=== PATIENT | male | born 1940 | race Caucasian/White ===

== ENCOUNTER 2018-09-30 13:08 | Inpatient (IN) | payer MEDICARE ==
[~2018-09-30] VITALS: Ht 188 cm; Wt 129.2 kg
[2018-09-30 14:15] LABS: Base Excess Venous 0.1 mmol/L; Bicarbonate Venous 24.4 mmol/L (24.0-30.0); PCO2 Venous 34.4 mmHg (38-42); PO2 Venous 36.1 mmHg (38-42); pH Blood Venous 7.45 (7.34-7.37)
[2018-09-30] MEDS ORDERED: ZESTORETIC 20-251 EA PO (15:21)
[2018-09-30] MEDS ORDERED: Omeprazole20 M1 PO (15:22)
[2018-09-30] MEDS ORDERED: ALLO300 PO (15:22)
[2018-09-30] MEDS ORDERED: TAMS.4ER PO (15:23)
[2018-09-30] MEDS ORDERED: Metformin HCl1000 MG PO (15:23)
[2018-09-30] MEDS ORDERED: ATOR20 PO (15:23)
[2018-09-30] MEDS ORDERED: ACYC400 PO (15:24)
[2018-09-30 15:43] LABS: Creatine Kinase MB 3.2 ng/mL (0.0-3.6)
[2018-09-30 16:10] LABS: Creatine Kinase MB Index 0.2 (0.0-4.0)
[2018-09-30 16:42] LABS: Source, Urine Voided
[2018-09-30 16:48] LABS: Bilirubin, Urine Neg (Neg); Blood, Urine 3+ (Neg); Glucose Qualitative, Urine Neg (Neg); Ketones, Urine Neg (Neg); Leukocyte Esterase, Urine 3+ (Neg); Nitrite, Urine Neg (Neg); Protein, Urine 3+ (Neg); Urobilinogen, Urine NORM (Normal)
[2018-09-30 16:53] LABS: Albumin, Blood 3.3 g/dL (3.4-5.0); Albumin/Globulin Ratio 0.8 (0.8-1.8); Bilirubin, Direct 0.2 mg/dL (0.0-0.3); Bilirubin, Indirect 0.3 mg/dL (0.1-0.7); Bilirubin, Total 0.5 mg/dL (0.1-1.0); Total Protein, Blood 7.3 g/dL (6.4-8.2)
[2018-09-30 16:57] LABS: Appearance, Urine Turbid (Clear); Color, Urine Yellow (P-Yellow); Squamous Epithelial Cells Few /hpf (Few)
[2018-09-30 16:58] LABS: Red Blood Cells, Urine 0-2 /hpf (0-2); White Blood Cells, Urine TNTC /hpf (0-5)
[2018-09-30 17:02] LABS: Bacteria Few /hpf
[2018-09-30 17:03] LABS: Mucus Mod (0-Heavy)
[2018-09-30 19:20] LABS: Percent Saturation 5.9 % (20.0-50.0)
--- NOTE | 2018-09-30 19:31 | NUR ---
RECEIVED REPORT FROM ED RN AND ASSUMED CARE OF PATIENT WHEN HE ARRIVED AT 1825. PT ARRIVES TO UNIT FEBRILE, ICE PACKS PLACED BEHINID NECK, UNDER ARMPITS AND AT GROIN, COOL CLOTH PLACED ON FOREHEAD. MINIMAL SHEETS/BLANKETS AND SCDS NOT ON UNTIL TEMP IS DOWN. VS RECORDED AND LR STARTED. PT FAMILY AT BEDSIDE, PT IS SETTLED IN FOR THIS RN TO GIVE REPORT TO NOC RN. BED IS LOCKED AND LOW, CALL LIGHT EXPLAINED AND IN EASY REACH.
--- NOTE | 2018-09-30 19:54 | NUR ---
PROVIDER CONTACTED PT WITH CONTINUED ELEVATED TEMPERATURE DESPITED MEDICATION ADMINISTRATION AND ICE PACK THERAPY. PHAN PIMENTEL CONTACTED. ORDERS RECEIVED FOR COOLING MEASURES WITH COOLING BLANKET PRN AND CARI SCHRADER. WILL INPUT ORDERS AND INITIATE.
[2018-09-30] MEDS ORDERED: CYAN500 PO (20:37)
[2018-09-30] MEDS ORDERED: CENTRUM SILVER1 EAC4 PO (20:37)
[2018-09-30] MEDS ORDERED: FLAX PO (20:38)
[2018-09-30] MEDS ORDERED: L-LYSINE500 MG PO (20:39)
--- NOTE | 2018-09-30 20:57 | NUR ---
PCU NIGHTSHIFT ASSUMED CARE OF PT APPROX. 1900. PT ALERT AND OREITNED TO SELF, PLACE, PERSON AND FOLLOWS DIRECTIONS. ALTHOUGH PT LETHARGIC AND FALLING ASLEEP DURING ASSESSMENT. BUT ABLE TO BE AWOKEN AND ANSWER QUESTIONS. PT REPORTS "NOT FEELING WELL" BUT OTHERWISE FEELS FINE. DENIES PAIN. PT BODY WARM TO TOUCH, T/O BODY. TEMPERATURE SCHRADER PLACED. SCHRADER PATENT AND DRAINING, CLEAR YELLOW URINE. ICE PACKS ON GROIN AND UNDER ARMS, COLD RAG ON FORHEAD AND COOLING BLANKET UNDER PT. AT BEDSIDE. BED IN LOW POSITION, CALL LIGHT IN REACH AND PT DENIES ANY NEEDS
[2018-10-01 03:43] LABS: BASOPHILS ABSOLUTE AUTO 0.04 K/mm3 (0.00-0.23); BASOPHILS PERCENT AUTO 0 % (0-2); EOSINOPHILS PERCENT AUTO 0 % (0-6); Hematocrit 31.1 % (37.0-53.0); IMMATURE GRAN ABSOLUTE AUTO 0.15 K/mm3 (0.00-0.10); IMMATURE GRAN PERCENT AUTO 1 % (0-1); LYMPHOCYTES ABSOLUTE AUTO 1.44 K/mm3 (0.84-5.20); LYMPHOCYTES PERCENT AUTO 6 % (21-46); MONOCYTES ABSOLUTE AUTO 1.27 K/mm3 (0.16-1.47); MONOCYTES PERCENT AUTO 6 % (4-13); Mean Corpuscular HGB 30.9 pg (26.0-34.0); Mean Corpuscular HGB Conc 32.2 g/dL (31.5-36.5); Mean Platelet Volume 9.8 fL (9.1-12.4); NEUTROPHILS ABSOLUTE AUTO 20.23 K/mm3 (1.96-9.15); NEUTROPHILS PERCENT AUTO 88 % (41-73); Platelet Count 175 K/mm3 (150-400); RDW Coefficient Variation 15.3 % (11.7-14.2); RDW Standard Deviation 54.1 fL (35.1-46.3); Red Blood Cell Count 3.24 M/mm3 (4.30-5.90); White Blood Cell Count 23.13 K/mm3 (4.00-11.30)
[2018-10-01 03:47] LABS: Mean Corpuscular Volume 96 fL (80-100)
[2018-10-01 04:01] LABS: Albumin, Blood 2.8 g/dL (3.4-5.0); Anion Gap 10 mmol/L (6-16); Blood Urea Nitrogen 34 mg/dL (8-24); Bun/Creatinine Ratio 18.1 (12.0-20.0); CO2, Blood 24 mmol/L (21-32); Calcium, Blood 8.5 mg/dL (8.5-10.1); Chloride, Blood 105 mmol/L (98-108); Creatinine, Blood 1.88 mg/dL (0.60-1.20); Glomerular Filtration Rate 37 (60-); Glucose, Blood 110 mg/dL (70-99); Magnesium, Blood 1.9 mg/dL (1.6-2.4); Phosphorus, Blood 5.2 mg/dL (2.5-4.9); Sodium, Blood 139 mmol/L (136-145)
--- NOTE | 2018-10-01 05:22 | NUR ---
NOTE CAME IN TO ASSESS PT TEMP. AND IT WAS 99.1. THIS SLOWLY BEGAN INCREASING OVER A PERIOD OF ABOUT 10 MINUTES. WHEN REACH TEMP OF 100.9. PRN TYLENOL WAS GIVEN PER EMAR. TEMPERATURE CONTINUE TO INCREASE. AT ABOUT 101.4 BEGAN ADDITIONAL INTERVENTIONS. THIS INCLUDED PLACING COLD RAG ON FORHEAD, TURNING ON COOLING BLANKET, AND GIVING PT ICE CREAM AND SOME ICE WATER ORALLY. CONTINUED TO MONITOR PT AND TEMPERATURE. COOLING BLANKET TEMPERATURE DECREASED. PT TEMPERUTRE GOT UP TO ABOUT 102.2. ICE PACK PLACED ON ARM PIT. IT THEN SAT AT THIS TEMPERATURE FOR ABOUT 5 MINUTES AND THEN SLIGHTLY DECREASED TO 101.7. CURRENTLY IN PT ROOM CONTINUING TO MONITOR THIS. WILL DO ADDITIONAL INTERVENTIONS IF NEEDED.
--- NOTE | 2018-10-01 06:46 | NUR ---
SHIFT SUMMARY PT PLEASANT, COOPERATIVE AND USES CALL LIGHT APPROPRIATLEY. PT A&O X4. PT AWAKENS TO VERBAL AND PHYSICAL STIMULI AND HAS NO TROUBLES STAYING AWAKE AND FOLLWING DIRECTIONS. MY TEMPERATURE CURRENTLY 100.4 AND HAS MAINTAINED EHRE FOR THE LAST 30 MINUTES. TEMPERTURE SCHRADER REMAINS IN PLACE, PATENT AND DRAINING DRAKE, CLEAR URINE. COOLING BALNKET REMAINS IN PLACE. ICE PACKS ON JUSTIN AND ARM PITS AND COLD RAG ON HEAD AT THIS TIME. REMAINS AT BEDSIDE. BED IN LOW POSITION, CALL LIGHT IN REACH AND PT DENIES ANY NEEDS AT THIS TIME. WILL CONTIUE TO MONITOR UNTIL HANDOFF TO DAYSHIFT RN.
--- NOTE | 2018-10-01 08:20 | NUR ---
am assessment: Pt resting in bed on the cooling/warming blanket. Temp ramos shows afebrial at this time of temp of 98.9. [place] set at 98 degrees. Pt is A/O x4. at bedside. VSS. LS clear. BT positive. Pulses palp. PT denies pain, SOB, states that he is feeling better. Call light in reach. Will monitor.
--- NOTE | 2018-10-01 09:28 | NUR ---
Patient gave community health nursing director permission to provide care on 10/01/2018.
--- NOTE | 2018-10-01 11:00 | NUR ---
update: Pt has "chills" and is shaking in room. Temp ramos shows he is afebrial at 98.4. Medicated with Tylenol anyway in preperation for a temp going up. [place] temp set at 98 degrees. BP slightly low at 90 Systolically, map is 65. Denies feeling symptomatic with this. at bedside. Pt denies other needs at this time. Will monitor. Call light in reach.
--- NOTE | 2018-10-01 20:23 | NUR ---
Shift Summary: Pt is afebrial at this time but spiked a temp up to 103.4. When Pt started with chills at 1100 he was medicated with tylenol. by 1130 pt temp had increased and cooling blanket had been turned back on. Pt temp did not decrease with these 2 measures and continued to rise. At 1300 pt temp was 101.3 and motrin was given per orders. Pt had ice packs placed in groin and pits and only one light blanket on. Pt temp continued to rise. At about 1400 ice bag broke open and bed was saturated. Pt linens were changes and bed bath given. At that time a cooling vest was placed as well as the cooling blanket. More Tylenol was given at 1530, where pt T-max was 103.4. Cooling measures were still in place. Pt temp started to decrease about 1/2 hour later. Pt was also medicated with motrin at about 1700 for temp of 100.5. At time of report Pt was afebrial and temp was 98.3. at that time blanket and vest temp were turned up to 98.3 degrees. Other then tempurature and shakes/chills pt has stated that he felt pretty good this shift. He has denied pain, SOB. He has displayed a dry cough, but oxygen was titrated to off and biox has remained >90% on RA, LS have also remained clear. Report was given to night RN.
[2018-10-02 04:11] LABS: Adenovirus F 40/41 Not Detected (NOT DETECT); Astrovirus Not Detected (NOT DETECT); Campylobacter Sp Not Detected (NOT DETECT); Cryptosporidium Not Detected (NOT DETECT); Cyclospora Cayetanensis Not Detected (NOT DETECT); E. Coli O157 Not Detected (NOT DETECT); Entamoeba Histolytica Not Detected (NOT DETECT); Enteroaggregative E. coli-EAEC Not Detected (NOT DETECT); Enteropathogenic E. coli-EPEC Not Detected (NOT DETECT); Enterotoxigenic E. coli-ETEC Not Detected (NOT DETECT); Giardia Lamblia Not Detected (NOT DETECT); Norovirus GI/GII Not Detected (NOT DETECT); Plesiomonas Shigelloides Not Detected (NOT DETECT); Rotavirus A Not Detected (NOT DETECT); Salmonella Sp Not Detected (NOT DETECT); Shiga Toxin-prod E. coli-STEC Not Detected (NOT DETECT); Shigella/Enteroin E. coli-EIEC Not Detected (NOT DETECT); Vibrio Cholerae Not Detected (NOT DETECT); Vibrio Sp Not Detected (NOT DETECT); Yersinia Enterocolitica Not Detected (NOT DETECT)
[2018-10-02 04:12] LABS: Sapovirus Not Detected (NOT DETECT)
--- NOTE | 2018-10-02 05:18 | NUR ---
END OF SHIFTY SUMMARY ASSUMED CARE OF PT @1900. PT AXO, TALKING APPROPRIATELY WITH STAFF. AT BEDSIDE T/O NIGHT. PT HAS CONTINUED TO HAVE LR INFUSE @150MLS AND HAS ABX INFUSION. PT HAS BEEN UP TOBSC X2 WITH LIQUID BROWN STOOLS, STOOL SAMPLE COLLECTED PER ORDER, RESULTS NEGATIVE. PT AFEBRILE UNTIL AROUND 0000. UNTIL THIS TIME, PT HAD NOT HAD COOLING VEST ON. UPON TEMP RISE, VEST PLACED BACK ON AND MACHINE TURNED ON, HOOKED UP TO VEST AND BLANKET. TEMPERATURE RINA FROM 97.8 TO 100.7 WITHIN 2 HOURS. PT GIVEN TYLENOL UPON REACHING TEMP OF 99.0 AND THEN GIVEN MOTRIN 2 HOURS LATER. PT'S TEMPS HAS SLOWLY LESSENED TO 97.8 @0523 THIS AM. WILL CONTINUE WITH COOLING APPARATUS AT THIS TIME DUE TO PT'S EXTREME TEMPERATURES IN DAY SHIFT AND LAST NOC. PT'S SCHRADER WAS DRAINING YELLOW WITH SEDIMENT BUT HAS REVERTED BACK TO CONTAINING RED STREAKS REPORTED PER DAY SHIFT REPORT. PT HAS BEEN RESTING FOR MAJORITY OF SHIFT. VSS BESIDES TEMP. WILL CONTINUE TO MONITOR PT UNTIL SHIFT CHANGE. CALL LIGHT WITHIN REACH.
[2018-10-02 06:10] LABS: BASOPHILS ABSOLUTE AUTO 0.03 K/mm3 (0.00-0.23); BASOPHILS PERCENT AUTO 0 % (0-2); EOSINOPHILS ABSOLUTE AUTO 0.01 K/mm3 (0.00-0.68); EOSINOPHILS PERCENT AUTO 0 % (0-6); Hemoglobin 8.6 g/dL (13.5-17.5); IMMATURE GRAN ABSOLUTE AUTO 0.15 K/mm3 (0.00-0.10); IMMATURE GRAN PERCENT AUTO 1 % (0-1); LYMPHOCYTES ABSOLUTE AUTO 0.74 K/mm3 (0.84-5.20); LYMPHOCYTES PERCENT AUTO 4 % (21-46); MONOCYTES ABSOLUTE AUTO 0.67 K/mm3 (0.16-1.47); MONOCYTES PERCENT AUTO 4 % (4-13); Mean Corpuscular HGB 30.4 pg (26.0-34.0); Mean Corpuscular HGB Conc 33.1 g/dL (31.5-36.5); Mean Platelet Volume 10.5 fL (9.1-12.4); NEUTROPHILS ABSOLUTE AUTO 15.52 K/mm3 (1.96-9.15); NEUTROPHILS PERCENT AUTO 91 % (41-73); Platelet Count 170 K/mm3 (150-400); RDW Coefficient Variation 15.4 % (11.7-14.2); RDW Standard Deviation 51.6 fL (35.1-46.3); Red Blood Cell Count 2.83 M/mm3 (4.30-5.90); White Blood Cell Count 17.12 K/mm3 (4.00-11.30)
[2018-10-02 06:17] LABS: Mean Corpuscular Volume 92 fL (80-100)
[2018-10-02 06:28] LABS: Albumin, Blood 2.2 g/dL (3.4-5.0); Anion Gap 9 mmol/L (6-16); Blood Urea Nitrogen 41 mg/dL (8-24); Bun/Creatinine Ratio 18.1 (12.0-20.0); CO2, Blood 24 mmol/L (21-32); Calcium, Blood 8.1 mg/dL (8.5-10.1); Chloride, Blood 105 mmol/L (98-108); Creatinine, Blood 2.27 mg/dL (0.60-1.20); Glomerular Filtration Rate 30 (60-); Glucose, Blood 127 mg/dL (70-99); Phosphorus, Blood 3.2 mg/dL (2.5-4.9); Potassium, Blood 3.5 mmol/L (3.5-5.5); Sodium, Blood 138 mmol/L (136-145)
--- NOTE | 2018-10-02 14:30 | NUR ---
TEMPERATURE CONTINUES TO INCREASE AFTER TYLENOL ADMINISTRATION. PT HAS COOLING BLANKET AND VEST IN PLACE. ICE PACKS IN THE UNDER ARMS. DR. OLIVAREZ CALLED AND NOTIFIED. NEW ORDERS PROVIDED AND TO CONSULT DR. PISANO. WILL CONTINUE TO MONITOR CLOSELY.
--- NOTE | 2018-10-02 16:00 | NUR ---
DR. PISANO IN TO SEE PT. TEMPERATURE HAS COME DOWN TO 99.9. PT DENIES ANY PAIN AT THIS TIME. NEW ORDERS HAVE BEEN PLACED. WILL CONTINUE TO MONITOR CLOSELY.
--- NOTE | 2018-10-02 18:49 | NUR ---
SHIFT SUMMARY PT ALERT AND ORIENTE. 02 SATS HAVE REMAINED ABOVE 90% ON RA. BP STABLE. TEMPERATURE AT THIS TIME IS 98.9. PT HAS COOLING BLANKET ON AT THIS TIME TO MAINTAIN STABLE TEMPERATURE. TEMP SCHRADER IN PLACE IS PATENT AND DRAINING. PT COMPLAINED OF PAIN EARLY IN THE SHIFT IN HIS HIPS THAT HAS NOW RESOLVED. PT NPO AT THIS TIME FOR CT OF ABD AND PELVIS. WILL CONTINUE TO MONITOR AND REPORT TO ONCOMING RN. CALL LIGHT IN REACH. FAMILY AT BEDSIDE.
--- NOTE | 2018-10-03 05:10 | NUR ---
END OF SHIFT SUMMARY ASSUMED CARE OF PT @1900. PT HAS BEEN AXO TALKING WITH STAFF APPROPRIATELY. HAS REMAINED AT BEDSIDE. PT REMAINS ON COOLING PRECAUTIONS WITH VEST/BLANKET BUT HAS NOT REQUIRED THEM UNTIL 444 DUE TO NORMOTHERMIC BODY TEMPS. PT HAS RISEN TO 100.0, VEST TURNED ON AND TYLENOL GIVEN. WILL CONTINUEN TO MONITOR TEMP AND ADJUST SETTINGS NEEDED. PT HAS CONTINUED TO RECEIVE FLUIDS AND IV ABX. PT STATES FEELING MUCH BETTER THIS SHIFT THEN LAST. TESSALOM PERRLS ORDERED PER SAIGAL AND GIVEN FOR CONSTANT COUGH. SLIGHT CRACKLES AUSCULTATED IN LUNG BASES. WILL CONTINUE TO MONITOR UNTIL SHIFT CHANGE. CALL LIGHT WITHIN REACH, BED IN LOWEST POSITION.
[2018-10-03 06:31] LABS: BASOPHILS ABSOLUTE AUTO 0.04 K/mm3 (0.00-0.23); BASOPHILS PERCENT AUTO 0 % (0-2); EOSINOPHILS ABSOLUTE AUTO 0.07 K/mm3 (0.00-0.68); EOSINOPHILS PERCENT AUTO 1 % (0-6); Hematocrit 26.2 % (37.0-53.0); Hemoglobin 8.5 g/dL (13.5-17.5); IMMATURE GRAN ABSOLUTE AUTO 0.16 K/mm3 (0.00-0.10); IMMATURE GRAN PERCENT AUTO 1 % (0-1); LYMPHOCYTES ABSOLUTE AUTO 0.84 K/mm3 (0.84-5.20); LYMPHOCYTES PERCENT AUTO 6 % (21-46); MONOCYTES ABSOLUTE AUTO 0.66 K/mm3 (0.16-1.47); MONOCYTES PERCENT AUTO 5 % (4-13); Mean Corpuscular HGB 29.5 pg (26.0-34.0); Mean Corpuscular HGB Conc 32.4 g/dL (31.5-36.5); Mean Corpuscular Volume 91 fL (80-100); Mean Platelet Volume 10.7 fL (9.1-12.4); NEUTROPHILS ABSOLUTE AUTO 11.38 K/mm3 (1.96-9.15); NEUTROPHILS PERCENT AUTO 87 % (41-73); Platelet Count 201 K/mm3 (150-400); RDW Coefficient Variation 15.4 % (11.7-14.2); RDW Standard Deviation 50.9 fL (35.1-46.3); Red Blood Cell Count 2.88 M/mm3 (4.30-5.90); White Blood Cell Count 13.15 K/mm3 (4.00-11.30)
[2018-10-03 06:46] LABS: Albumin, Blood 2.2 g/dL (3.4-5.0); Anion Gap 7 mmol/L (6-16); Blood Urea Nitrogen 37 mg/dL (8-24); Bun/Creatinine Ratio 18.9 (12.0-20.0); CO2, Blood 25 mmol/L (21-32); Calcium, Blood 8.4 mg/dL (8.5-10.1); Chloride, Blood 105 mmol/L (98-108); Creatinine, Blood 1.96 mg/dL (0.60-1.20); Glomerular Filtration Rate 35 (60-); Glucose, Blood 114 mg/dL (70-99); Phosphorus, Blood 3.1 mg/dL (2.5-4.9); Potassium, Blood 3.1 mmol/L (3.5-5.5); Sodium, Blood 137 mmol/L (136-145)
--- NOTE | 2018-10-03 18:07 | NUR ---
SHIFT SUMMARY PT ALERT AND ORIENTED. VS STABLE. TEMPERATURE HAS BEEN BETTER CONTROLLED THIS SHIFT SEE VS. COOLING BLANKET HAS BEEN REMOVED. LS EXP WHEEZES. PT RECEIVING BREATHING TREATMENT AT THIS TIME. ATTEMPTED TO BLADDER TRAIN PT. SCHRADER DRAIN CLAMPED FOR 2 HOURS AND PT DENIES THE FEELING OF THE NEED TO URINATE. WILL CONTINUE TO BLADDER TRAIN. IV ZOSYN INFUSING PER ORDERS. REPORT CALLED TO MEDICAL FLOOR RN. WILL TRANSFER PT.
--- NOTE | 2018-10-04 04:55 | NUR ---
SHIFT SUMMARY PT PCU TRANSFER THIS EVENING. PT ALERT AND ORIENTED. REMAINS PRESENT T/O NIGHT. IVF'S INFUSING PER PUMP WITHOUT DIFFICULTY. NO ACUTE EVENTS OVER NIGHT, WILL CONTINUE TO MONITOR.
[2018-10-04 05:35] LABS: BASOPHILS ABSOLUTE AUTO 0.05 K/mm3 (0.00-0.23); BASOPHILS PERCENT AUTO 1 % (0-2); EOSINOPHILS ABSOLUTE AUTO 0.13 K/mm3 (0.00-0.68); EOSINOPHILS PERCENT AUTO 1 % (0-6); Hemoglobin 7.9 g/dL (13.5-17.5); IMMATURE GRAN ABSOLUTE AUTO 0.22 K/mm3 (0.00-0.10); IMMATURE GRAN PERCENT AUTO 2 % (0-1); LYMPHOCYTES ABSOLUTE AUTO 1.05 K/mm3 (0.84-5.20); LYMPHOCYTES PERCENT AUTO 11 % (21-46); MONOCYTES ABSOLUTE AUTO 0.91 K/mm3 (0.16-1.47); MONOCYTES PERCENT AUTO 9 % (4-13); Mean Corpuscular HGB Conc 32.9 g/dL (31.5-36.5); Mean Corpuscular Volume 91 fL (80-100); Mean Platelet Volume 10.1 fL (9.1-12.4); NEUTROPHILS ABSOLUTE AUTO 7.62 K/mm3 (1.96-9.15); NEUTROPHILS PERCENT AUTO 76 % (41-73); Platelet Count 204 K/mm3 (150-400); RDW Coefficient Variation 15.4 % (11.7-14.2); RDW Standard Deviation 51.2 fL (35.1-46.3); Red Blood Cell Count 2.63 M/mm3 (4.30-5.90); White Blood Cell Count 9.98 K/mm3 (4.00-11.30)
[2018-10-04 06:07] LABS: Magnesium, Blood 2.2 mg/dL (1.6-2.4)
[2018-10-04 06:08] LABS: Albumin, Blood 2.1 g/dL (3.4-5.0); Anion Gap 6 mmol/L (6-16); Blood Urea Nitrogen 30 mg/dL (8-24); Bun/Creatinine Ratio 17.3 (12.0-20.0); CO2, Blood 27 mmol/L (21-32); Calcium, Blood 8.5 mg/dL (8.5-10.1); Chloride, Blood 106 mmol/L (98-108); Creatinine, Blood 1.73 mg/dL (0.60-1.20); Glomerular Filtration Rate 41 (60-); Glucose, Blood 115 mg/dL (70-99); Potassium, Blood 3.4 mmol/L (3.5-5.5); Sodium, Blood 139 mmol/L (136-145)
[2018-10-04 15:35] LABS: Vancomycin, Trough 8.5 ug/mL (5.0-10.0)
--- NOTE | 2018-10-04 18:00 | NUR ---
PATIENT IS ALERT AND ORIENTED AND COOPERATIVE WITH CARE. HIS HAS BEEN AT THE BEDSIDE ALL DAY. FAMILY CAME TO VISIT WELL. THE PATIENT IS UP TO THE EDGE OF THE BED FOR ALL MEALS. NO COMPLAINTS OF PAIN. LR RUNNING AT 50 ML/HR. VANCO AND ZOSYN IV. SCHRADER CATHETER IS PATENT. PT COMPLAINS OF NOTICEABLE SWELLING IN HANDS AND KNEES BILATERALLY. DR. VALERIO REQUESTED THE PATIENT PARTICIPATE WITH PHYSICAL THERAPY TO LESSEN THE SWELLING PER . BLOOD SUGARS ACHS, NO INSULIN COVERAGE NEEDED DURING THIS SHIFT. WILL CONTINUE TO MONITOR THE PATIENT.
--- NOTE | 2018-10-05 05:06 | NUR ---
SHIFT SUMMARY PT DIDN'T SLEEP WELL DURING THE NIGHT, UP LATE. STAYED WITH PT T/O NIGHT AT BEDSIDE. PT RECEIVED PRN NEB TREATMENT X1. IV LR INFUSING PER PUMP AT 50ML/HR. NO ACUTE EVENTS NOTED DURING THE NIGHT, WILL CONTINUE TO MONITOR.
--- NOTE | 2018-10-05 06:23 | NUR ---
PT IS HAVING INCREASED SWELLING NOTED IN KNEES AND HANDS. IVF'S STOPPED, WILL REPORT OFF TO ONCOMING SHIFT. DENIES SHORTNESS OF BREATH, LUNGS WITH EXP WHEEZES.
[2018-10-05 08:34] LABS: BASOPHILS ABSOLUTE AUTO 0.04 K/mm3 (0.00-0.23); BASOPHILS PERCENT AUTO 0 % (0-2); EOSINOPHILS ABSOLUTE AUTO 0.18 K/mm3 (0.00-0.68); EOSINOPHILS PERCENT AUTO 2 % (0-6); Hematocrit 25.7 % (37.0-53.0); Hemoglobin 8.3 g/dL (13.5-17.5); IMMATURE GRAN ABSOLUTE AUTO 0.39 K/mm3 (0.00-0.10); IMMATURE GRAN PERCENT AUTO 4 % (0-1); LYMPHOCYTES ABSOLUTE AUTO 1.18 K/mm3 (0.84-5.20); LYMPHOCYTES PERCENT AUTO 13 % (21-46); MONOCYTES ABSOLUTE AUTO 0.89 K/mm3 (0.16-1.47); MONOCYTES PERCENT AUTO 10 % (4-13); Mean Corpuscular HGB 30.3 pg (26.0-34.0); Mean Corpuscular HGB Conc 32.3 g/dL (31.5-36.5); Mean Platelet Volume 10.3 fL (9.1-12.4); NEUTROPHILS ABSOLUTE AUTO 6.49 K/mm3 (1.96-9.15); NEUTROPHILS PERCENT AUTO 71 % (41-73); Platelet Count 221 K/mm3 (150-400); RDW Coefficient Variation 15.4 % (11.7-14.2); Red Blood Cell Count 2.74 M/mm3 (4.30-5.90); White Blood Cell Count 9.17 K/mm3 (4.00-11.30)
[2018-10-05 08:35] LABS: Mean Corpuscular Volume 94 fL (80-100)
[2018-10-05 08:53] LABS: Calcium, Blood 8.9 mg/dL (8.5-10.1); Creatinine, Blood 1.59 mg/dL (0.60-1.20); Potassium, Blood 3.7 mmol/L (3.5-5.5)
[2018-10-05 08:54] LABS: Vancomycin, Random 11.4 ug/mL
--- NOTE | 2018-10-05 18:27 | NUR ---
SUMMARY PT IS A/O X4, PLEASANT/COOPERTATIVE, UP IND IN ROOM/AMBULATE IN HALLS. HE STATE NO PAIN/DISCOMFORT TODAY. STATE WEAKNESS/FATIGUE IMPROVING. DR VALERIO IN TO SEE HIM THIS AM, ORDER IV SITES D/C'D, SCHRADER CATH D/C'D, CHANGE ANTIBX TO ORAL. ORDER ECHO. STATE POSSIBLE D/C HOME TOMORROW. PT STATE ALREADY HAS F/U SCHEDULED W PCP IN [place] WHO WILL PROVIDE UROLOGY CONSULT. HE HAS VOIDED MULT X'S, URINE LIGHT PINK, STATE WHEN SCHRADER WAS PLACED BLOODY URINE & CLOTS, WILL MX. VSS/AFEBRILE
--- NOTE | 2018-10-06 04:40 | NUR ---
SHIFT SUMMARY PT HAS BEEN UP IN THE HALLWAY WALKING WITH WALKER, DOES WELL. REMAINS AT BEDSIDE. PT VOIDING DARK YELLOW URINE. HAS OFFERED NO C/O'S. WILL CONTINUE TO MONITOR.
[2018-10-06 05:30] LABS: Hematocrit 25.4 % (37.0-53.0); Hemoglobin 8.1 g/dL (13.5-17.5); Mean Corpuscular HGB 29.7 pg (26.0-34.0); Mean Corpuscular HGB Conc 31.9 g/dL (31.5-36.5); Mean Corpuscular Volume 93 fL (80-100); Mean Platelet Volume 10.4 fL (9.1-12.4); Platelet Count 243 K/mm3 (150-400); RDW Coefficient Variation 15.1 % (11.7-14.2); RDW Standard Deviation 50.3 fL (35.1-46.3); Red Blood Cell Count 2.73 M/mm3 (4.30-5.90); White Blood Cell Count 11.15 K/mm3 (4.00-11.30)
[2018-10-06 05:57] LABS: BASOPHILS ABSOLUTE MAN 0.11 K/mm3 (0.00-0.23); BASOPHILS PERCENT MAN 1 % (0-2); Bun/Creatinine Ratio 20.3 (12.0-20.0); Calcium, Blood 8.8 mg/dL (8.5-10.1); Creatinine, Blood 1.33 mg/dL (0.60-1.20); EOSINOPHILS ABSOLUTE MAN 0.11 K/mm3 (0.00-0.68); EOSINOPHILS PERCENT MAN 1 % (0-6); LYMPHOCYTES PERCENT MAN 9 % (21-46); METAMYELOCYTE ABSOLUTE MAN 0.11 K/mm3 (0.00-0.00); METAMYELOCYTE PERCENT MAN 1 % (0-0); MONOCYTES ABSOLUTE MAN 0.89 K/mm3 (0.16-1.47); MONOCYTES PERCENT MAN 8 % (4-13); MYELOCYTE ABSOLUTE MAN 0.22 K/mm3 (0.00-0.00); MYELOCYTE PERCENT MAN 2 % (0-0); NEUTROPHILS ABSOLUTE MAN 8.69 K/mm3 (1.96-9.15); Potassium, Blood 3.5 mmol/L (3.5-5.5); SEG NEUTROPHILS PERCENT MAN 78 % (41-73); TOTAL CELLS COUNTED 100
--- NOTE | 2018-10-06 07:58 | NUR ---
ASSUMED CARE OF PT- RECIEVED REPORT FROM NIGHT CORNELIUS BARNES. PER REPORT PT ALERT ORIENTED AND INDEPENDENT IN THE ROOM AND HALLS. PT CURRENTLY SITTING UP IN CHAIR WITH CALL LIGHT IN REACH, NO CURRENT C/O PAIN DENIES N/T. NO IV ACCESS NEEDED PER REPORT POSSIBLE DC HOME TODAY. PT DOES NOT HAVE A SCHRADER CATHETER, IT WAS REMOVED YESTERDAY PER PT REPORT HE IS VOIDING WELL NOW.
[2018-10-06] MEDS ORDERED: TAMS.4ER PO (10:54)
[2018-10-06] MEDS ORDERED: Augmentin 875-1 EACH PO (10:54)
[2018-10-06] MEDS ORDERED: PRED10 PO (10:56)
--- NOTE | 2018-10-06 11:34 | NUR ---
DISCHARGE NOTE- PT AND SPOUSE PRESENT FOR DISCHARGE TEACHING, PT WAS GIVEN VERBAL AND WRITTEN DISCHARGE INSTRUCTIONS AND ACKNOWLEDGED UNDERSTANDING OF THEM. PT MEDICATIONS WERE FAXED TO [facility], PER PT REQUEST. PT HAD NO IV ACCESS AT THE TIME OF DISCHARGE, AND WAS PROVIDED WITH CONTACT INFORMATION IN THE EVENT THAT QUESTIONS SHOULD ARRISE LATER TODAY. PT STATED HE HAS A PCP IN [place] WHICH HE HAS AN APPOINTMENT WITH TOMORROW MORNING AT 0800.
== END 2018-10-06 12:25 | disposition home or self-care (01) | DRG 871 ==
LOC: ER 13:08 → PCU 16:00 → MEDS 10-03 19:38
PROVIDERS: Emergency Medicine; Hospitalist; Internal Medicine Infectious Disease; Pharmacist; ADMIT Internal Medicine
DX: A41.9 Sepsis, unspecified organism (principal); G92 Toxic encephalopathy; J18.9 Pneumonia, unspecified organism; N17.9 Acute kidney failure, unspecified; R65.20 Severe sepsis without septic shock; E11.22 Type 2 diabetes mellitus with diabetic chronic kidney disease; E78.5 Hyperlipidemia, unspecified; I12.9 Hypertensive chronic kidney disease with stage 1 through stage 4 chronic kidney disease, or unspecified chronic kidney disease; M19.90 Unspecified osteoarthritis, unspecified site; N40.0 Benign prostatic hyperplasia without lower urinary tract symptoms; Z96.653 Presence of artificial knee joint, bilateral; Z79.82 Long term (current) use of aspirin; Z79.84 Long term (current) use of oral hypoglycemic drugs; E86.0 Dehydration; K52.9 Noninfective gastroenteritis and colitis, unspecified; E87.70 Fluid overload, unspecified; E87.6 Hypokalemia; K57.30 Diverticulosis of large intestine without perforation or abscess without bleeding; R16.0 Hepatomegaly, not elsewhere classified; G40.909 Epilepsy, unspecified, not intractable, without status epilepticus; N18.9 Chronic kidney disease, unspecified
CPT/HCPCS: 36415; 70450; 71045; 71046; 74176; 80048; 80069; 80076; 80202; 81001; 82550; 82553; 82728; 82803; 82947; 83540; 83550; 83605; 83735; 84145; 85025; 87086; 87449; 87507; 93005; 93010; 93306; 94640; 94760; 96361; 96374; 99285-25; J0456; J1650; J1885; J1940; J1956; J2543; J3370; J7030; J7050; J7120; J7512